=== PATIENT | male | born 1955 | race Caucasian/White ===

== ENCOUNTER 2017-04-15 06:46 | Inpatient (IN) | payer OTHER ==
--- NOTE | 2017-04-02 22:50 | HP ---
HISTORY AND PHYSICAL: DATE OF SURGERY: 04/15/17 DATE OF OFFICE VISIT: 04/02/17 SURGEON: Kathryn Joe MD * (DICTATED BY NABEEL HERRON) PROCEDURE: Left total hip arthroplasty. CHIEF COMPLAINT: Left hip pain. HISTORY OF PRESENT ILLNESS: Mr. Real is a 61-year-old gentleman with complaints of left hip pain secondary to advanced osteoarthritis. He has failed conservative management, has elected to proceed with a left total hip arthroplasty, which is scheduled for 04/15/[address] Joe. PAST MEDICAL HISTORY: 1. Hypothyroidism. 2. Hypertension. 3. Prior femur fracture bilaterally. 4. Melanoma. 5. GERD. 6. History of a bleeding ulcer. PAST SURGICAL HISTORY: 1. Bilateral ORIF of the femurs. 2. Jaw surgery. 3. Removal of bilateral femur rods. 4. Melanoma removal with orbital surgery. CURRENT MEDICATIONS: 1. Synthroid. 2. Omeprazole. 3. Quinapril. 4. Amlodipine. 5. Hydrochlorothiazide. 6. Turmeric. 7. [place]-3. 8. Osteo Bi-Flex. 9. Vitamin B12. ALLERGIES: No known drug allergies. FAMILY HISTORY: Colon cancer and hypertension. SOCIAL HISTORY: He is a 61-year-old gentleman, he lives with his . He is retired. He does not smoke or use drugs, uses occasional alcohol. REVIEW OF SYSTEMS: A complete 14-point review of systems is reviewed with the patient, is positive for hypothyroidism. PHYSICAL EXAMINATION GENERAL: He is well developed, well nourished, in no acute distress. VITAL SIGNS: He stands 5 feet 6 inches tall, weighs 197 pounds, his blood pressure is 136/82, heart rate is 97. HEENT: Normocephalic, atraumatic. NECK: Supple. No palpable lymph nodes. PULMONARY: Lungs are clear to auscultation bilaterally. CARDIO: Regular rate and rhythm. ABDOMEN: Soft, nontender, and nondistended. NEUROLOGIC: He is alert and oriented x3. Cranial nerves II through XII are intact. MUSCULOSKELETAL: Left lower extremity, the skin is intact. There are no open wounds or abrasions. He has decreased range of motion with internal and external rotation of the left hip. He walks with an antalgic type gait. His lower extremity muscle group strength is intact at 5/5 and he has 2+ dorsalis pedis pulses. ASSESSMENT AND PLAN: Mr. Real is a 61-year-old gentleman with complaints of left hip pain secondary to posttraumatic osteoarthritis. He has failed conservative management and has elected to proceed with a left total hip arthroplasty, which is scheduled for 04/15/17. Dr. Joe discussed the risks and benefits of the surgery at today's visit and all of his questions were answered. Coumadin, Percocet, and Colace were sent to his pharmacy for postoperative pain control and DVT prophylaxis. He will follow up with Dr. Joe in 2 weeks after the surgery. NABEEL HERRON [id number]/[facility] #: [id number] MTDD
[~2017-04-15 06:46] MED LIST: Buffered Lidocaine 0.9% SYRIN* 5 ML/SYR SYRINGE INTRADERM ONE; Famotidine IV* 10 MG/ML 2 ML (20 mg) IV ONE
[2017-04-15] MEDS ORDERED: ceFAZolin 2 GM PREMIX (*) 50 ML IVPB ONE (06:55)
[2017-04-15] MEDS ORDERED: Buffered Lidocaine 0.9% SYRIN* 5 ML/SYR SYRINGE ONE (06:55)
[2017-04-15] MEDS ORDERED: Famotidine IV* 10 MG/ML 2 ML (20 mg) ONE (06:55)
[2017-04-15] MEDS ORDERED: KETAMINE HCL* 50 MG/ML 10 ML VIAL ONE (07:51)
[2017-04-15] MEDS ORDERED: Midazolam* 1 MG/ML 5 ML VIAL (5 MG) ONE (07:51)
[2017-04-15] MEDS ORDERED: Morphine PF AMP (0.5MG/ML)* 5 MG/10 ML AMP ONE (07:51)
[2017-04-15] MEDS ORDERED: fentaNYL* 50 MCG/ML 2 ML VIAL (100 MCG VIAL) ONE (07:51)
[2017-04-15] MEDS ORDERED: Ketorolac INJ* 30 MG/ML 1 ML VIAL ONE (08:39)
[2017-04-15] MEDS ORDERED: Dexamethasone IV* 4 MG/ML 1 ML (4 MG) ONE (08:39)
[2017-04-15] MEDS ORDERED: Phenylephrine IV* 40 MCG/ML 10 ML SYRINGE ONE (08:39)
[2017-04-15] MEDS ORDERED: Propofol* 10 MG/ML 20 ML BTL IV PUSH ONE (08:39)
[2017-04-15] MEDS ORDERED: Ondansetron INJ* 2 MG/ML VIAL ONE (08:39)
[2017-04-15] MEDS ORDERED: Lidocaine 2% PF * 5 ML VIAL ONE (08:39)
[2017-04-15] MEDS ORDERED: EPHEDrine (Pressors)* 50 MG/ML VIAL ONE (08:48)
[2017-04-15] MEDS ORDERED: Nalbuphine* 20 MG/ML 1 ML VIAL IV PRN (09:34)
[2017-04-15] MEDS ORDERED: Naloxone* 0.4 MG/ML 1 ML VIAL IV PRN (09:34)
[2017-04-15] MEDS ORDERED: Ondansetron INJ* 2 MG/ML VIAL IV PRN (09:34)
[2017-04-15] MEDS ORDERED: oxyCODONE/Acetamin 5/325 MG* TAB PO PRN (09:39)
[2017-04-15] MEDS ORDERED: DiMENhydriNATE IV* 50 MG/ML VIAL IV PUSH PRN (09:39)
[2017-04-15] MEDS ORDERED: HYDROmorphone INJ* 1 MG/ML CARPUJECT SYRINGE IV PRN (09:39)
[2017-04-15] MEDS ORDERED: Gabapentin CAP(*) 300 MG PO ONE (09:41)
[2017-04-15] MEDS ORDERED: diPHENhydraMINE IV* 50 MG/ML 1 ml VIAL (BENADRYL) IV PRN (09:44)
[2017-04-15] MEDS ORDERED: Acetaminophen TAB* 325 MG PO PRN (09:44)
[2017-04-15] MEDS ORDERED: Bisacodyl SUPP* 10 MG SUPP PR PRN (09:44)
[2017-04-15] MEDS ORDERED: Polyethylene Glycol 3350* 17 GM PACKET PO PRN (09:44)
[2017-04-15] MEDS ORDERED: Magnesium Hydroxide LIQ* 30 ML UDC PO PRN (09:44)
[2017-04-15] MEDS ORDERED: ceFAZolin 1 GM VIAL(*) 1 GM in NS 0.9% 50 ML* 50 ML IVPB SCH (10:00)
--- NOTE | 2017-04-15 11:18 | RAD ---
Indication: Left hip replacement. 2 views of left hip demonstrates bipolar left hip arthroplasty in satisfactory position. No loosening is noted. IMPRESSION: Left hip bipolar arthroplasty in satisfactory position.
--- NOTE | 2017-04-15 12:04 | RAD ---
Indication: Postop LEFT total hip replacement. Comparison: January 18, 2017 Technique: Low AP pelvis and proximal femurs and AP and crosstable lateral views LEFT hip Report: LEFT total hip prosthesis in place with normal alignment. No periprosthetic fracture evident. Overlying soft tissue edema and subcutaneous emphysema. Partially visualized bilateral mid to distal diaphyseal femur fractures. IMPRESSION: Unremarkable immediate postop appearance of the LEFT total hip prosthesis.
[2017-04-15] MEDS: oxyCODONE/Acetamin 5/325 MG* TAB PO PRN ×3 (14:38→22:45)
[2017-04-15] MEDS: ceFAZolin 1 GM in Dextrose (*) 1 GM/50 ML BAG IVPB SCH (15:55)
[2017-04-15] MEDS: Ibuprofen TAB* 600 MG PO SCH ×2 (15:55→22:01)
[2017-04-15] MEDS ORDERED: Warfarin TAB(*) 6 MG PO ONE (17:00)
--- NOTE | 2017-04-15 22:00 | CONS ---
CC: Dr. Estrada; Dr. Joe * CONSULTATION REPORT: DATE OF CONSULT: 04/15/17 PRIMARY CARE PROVIDER: Dr. Estrada. REQUESTING PHYSICIAN FOR CONSULT: Dr. Joe. ATTENDING PHYSICIAN WHILE IN THE HOSPITAL: Dr. Shad Cho (report dictated by Martinez Hathaway NP). REASON FOR MEDICAL CONSULTATION: Evaluation and medical management of comorbid medical conditions. HISTORY OF PRESENT ILLNESS: Mr. Real is a 61-year-old man patient that for sometime has been dealing with left hip pain affecting his activities of daily living. He failed conservative therapy. He was evaluated by Dr. Joe. It was felt that he would benefit from a total hip replacement, which he underwent today. He does carry a history of hypothyroidism, hypertension, melanoma. He has a history of bilateral femur fractures with rodding and maximilian removal. He has a history of GERD and a history of GI bleed. He was evaluated in the postoperative setting. He says he is feeling well. Denies any chest pain, denies having abdominal discomfort. Says he actually feels hungry. He says he has a little bit of pain in his left hip. It is probably 3/10. He denies having any numbness or tingling in the lower extremity. Denies having any shortness of breath or chest pain and he says he does not feel lightheaded. Because of his medical complexity, we were asked to evaluate in consult. PAST MEDICAL HISTORY: Significant for: 1. Hypothyroidism. 2. Hypertension. 3. Melanoma. 4. Femur fracture. 5. GERD. 6. History of GI bleed. PAST SURGICAL HISTORY: 1. The patient has had an ORIF of bilaterally lower femurs. 2. He has had jaw surgery. 3. He has had a melanoma excision. 4. Left total hip arthroplasty done today and he has had removal of his femur rods. HOME MEDICATIONS: According to the list that was provided include: 1. Quinapril 40 mg daily. 2. Prilosec 20 mg daily. 3. [place]-3 fatty acids 1200 mg p.o. daily. 4. Turmeric 500 mg p.o. daily. 5. Osteo Bi-Flex 1 tablet p.o. daily. 6. Synthroid 88 mcg daily. 7. Ibuprofen 600 mg p.o. daily. 8. Hydrochlorothiazide 25 mg daily. 9. Vitamin B12 500 mcg daily. 10. Norvasc 5 mg daily. 11. Tylenol 3 tablets p.o. in the morning. ALLERGIES TO MEDICATIONS: Include MORPHINE. FAMILY HISTORY: His mother had a history of colon cancer. Father had a history of hypertension. SOCIAL HISTORY: He does not smoke, does not drink. Surrogate decision maker is his . REVIEW OF SYSTEMS: There is no documented fever. He denied having any significant weight change. There was no double vision. He denies having any ear discharge. There was no rhinorrhea. No sore throat. No thyroid enlargement. Denies having any chest pain. There is no orthopnea. There is no nocturnal dyspnea. He denied having any abdominal pain. There was no nausea , no vomiting, no dysuria, no frequency, no seizure, no loss of consciousness, no pruritus, and no skin ulceration. Review of 14 systems completed, all others negative. PHYSICAL EXAMINATION: Vital Signs: Blood pressure 122/88, pulse 74, respirations 16, O2 sat 97%, and his temperature was 98.2. General: At this time, Mr. Real is a 61-year-old male patient, appears to be well nourished, well developed. He is sitting in the hospital bed, does not appear to be in any acute distress.. HEENT: Head atraumatic. Eyes, sclerae anicteric. Neck supple. Throat: Oral mucosa appears to be moist. No oropharyngeal erythema. Heart: Sounds S1, S2. Regular rate and rhythm. No murmurs, rubs, or gallops. Lungs: Clear to auscultation. No wheezes, rales, or rhonchi. Abdomen: Soft , flat, nontender. Bowel sounds hypoactive. Extremities: Pulses 2+ throughout. He is unable to move the lower extremities as he is in a hip abductor pillow. He had distal CSM checks were intact. Neurologic: The patient is awake, alert, oriented x3. Tongue midline. Director Of Online Merchandising were equal. No gross focal deficits. Skin: Grossly intact with the exception he has an incision to the left hip, which is covered with an ABD. DIAGNOSTIC STUDIES/LAB DATA: His labs preop, sodium 133, potassium 4.4, chloride of 93, bicarb 24, glucose 87. WBC 4.4, RBC 3.92, hemoglobin 13.6, hematocrit 37, platelet count 355. INR 0.76. UA negative. BUN 7, creatinine 0.70. He did have a preop EKG, which showed a normal sinus rhythm, rate of 85. No ST elevations or T-wave inversions. X-ray showed no impression for acute intrathoracic disease. Old medical records reviewed. ASSESSMENT AND PLAN: Mr Real is a 61-year-old male patient coming in to Dr. Joe's services today for an elective left total hip. We were asked to evaluate in consult. Recommendations at this point are: 1. Status post left total hip. We will defer the management to Dr. Joe and her team. 2. Hypothyroidism. Continue with Synthroid. 3. Hypertension. We will continue meds with the exception of hydrochlorothiazide and we will continue to follow. Should his pressures tolerate, we will start the hydrochlorothiazide. 4. Melanoma. Follow with primary. 5. Gastroesophageal reflux disease. Continue PPI therapy. 6. History of GI bleed, not an active issue currently. We will follow. 7. DVT prophylaxis. Defer to the primary team. 8. Code status. Full code. 9. Fluids, electrolytes, and nutrition. I would recommend a heart healthy diet. TIME SPENT: Time spent on the consult was 60 minutes, greater than half that time was spent [id number] with the patient obtaining my history and physical, the other half the time was spent going over the plan of care with the patient and implementing the plan of care. I did discuss the plan of care with my attending, Dr. Cho, he is in agreement. MARTINEZ HATHAWAY NP [id number]/[facility] #: [id number] NEVA
[2017-04-15] MEDS: Docusate CAP* 100 MG PO SCH (22:01)
[2017-04-16] MEDS ORDERED: HYDROmorphone TAB* 2 MG PO PRN (00:06)
[2017-04-16] MEDS ORDERED: oxyCODONE/Acetamin 5/325 MG* TAB PO PRN (00:06)
[2017-04-16] MEDS: ceFAZolin 1 GM in Dextrose (*) 1 GM/50 ML BAG IVPB SCH ×2 (00:08→07:53)
[2017-04-16] MEDS ORDERED: Ondansetron INJ* 2 MG/ML VIAL IV PRN (01:35)
[2017-04-16] MEDS ORDERED: Ondansetron TAB* 4 MG PO PRN (01:35)
--- NOTE | 2017-04-16 01:36 | OP ---
DATE OF OPERATION: 04/15/17 - ROOM #348 DATE OF : 53 ATTENDING SURGEON: Kathryn Joe MD SLAG EXPANDER: NABEEL Hernandez. Ms. Garcia did help throughout the procedure with preparation of the leg, wound retraction, manipulation of the hip, and wound closure. ANESTHESIOLOGIST: Dr. Lehman. ANESTHESIA TYPE: Spinal. PRE-OP DIAGNOSIS: Severe posttraumatic osteoarthritis of the left hip joint. POST-OP DIAGNOSIS: Severe posttraumatic osteoarthritis of the left hip joint. OPERATIVE PROCEDURE: Left total hip arthroplasty. ESTIMATED BLOOD LOSS: 300 mL. COMPLICATIONS: None. SPECIMENS: Femoral head and multiple acetabular bone reaming sent to Pathology. HARDWARE USED: Uncemented Sadi total hip hardware. For the cup, a Titanium cluster hole shell 54E, 160-mm and 120-mm cancellous bone screw were used. An MDM cementless liner 42E. For the stem, an Accolade TMZF, size 3.5, 127-degree neck with a head 28-4, Biolox delta ceramic V40 femoral head with a 28/48/42E MDM X3 insert. BRIEF HISTORY/INDICATIONS: Mr. Real is a 61-year-old gentleman who had a fracture of his left femur treated with femoral nail many years ago, over 20 years ago. The nail was subsequently removed. The patient denied any problems or any complications or infection related to the femoral nailing or fracture. Over time, left hip pain, which was [id number] on radiographs. This was severe end-stage posttraumatic arthritis of the left hip joint. He failed conservative treatment with antiinflammatories, pain medications, and physical therapy. Due to continued pain and decreased quality of life, he elected to undergo left total hip arthroplasty. Informed consent was obtained from the patient. He understood the risks of the procedure included but were not limited to bleeding, infection, damage to nearby structures, intraoperative fracture, nerve palsy, hardware failure or loosening, dislocation, leg length discrepancy, stroke, heart attack, blood clot and . He wished to proceed. INTRAOPERATIVE FINDINGS: Intraoperatively, the patient was noted to have severe deformation of the femoral head and acetabulum. Femoral head was misshaping with significant loss of bone. Acetabulum was also deformed with extreme subchondral sclerosis and complete loss of cartilage. DESCRIPTION OF PROCEDURE: Mr. Real was identified in the preanesthesia unit. His left lower extremity was marked as the correct operative site. Informed consent was signed and placed in the chart. The patient was taken to the operating room and placed under spinal anesthesia. A Thorne catheter was placed. The patient was placed in the right lateral decubitus position on the pegboard. The left lower extremity was prepped and draped in the usual sterile fashion. Preop time-out was made to correctly identify the patient's side and site. Appropriate perioperative antibiotics were given within 1 hour of incision. A 14-cm posterior hip incision was made with a 10 blade and carried down to the lateral fascia layer. Lateral fascia layer was incised in line with skin incision. A Charnley retractor was placed. The piriformis and conjoint tendons were identified on the posterolateral femur. The electrocautery was used to elevate these and they were tagged with #5 Ethibond. Next, the electrocautery was used to make a standard posterolateral capsular flap. This was also tagged with #5 Ethibond. The hip was carefully dislocated. Lesser troch to the center of the femoral head measured 55 mm. It was noted the femoral head was deformed with abnormal shape. Oscillating saw was used to make the appropriate femoral neck cut. The femoral head was sent to Pathology. The femur was carefully retracted anteriorly. After appropriate placement of retractors, the acetabulum was visualized. Long-handled knife was used to sharply remove any remaining labrum from the acetabular rim. The acetabulum was sequentially reamed up to a size 53. There is significant subchondral sclerosis noted. There was minimal bone left medially. A bleeding subchondral bone bed was obtained. A 53 trial had a good fit. The Tritanium 54E cluster hole shell was chosen. This was placed in the acetabulum without difficulty. There was excellent stability and appropriate anteversion and abduction angle. A single 20 mm screw and a single 60 mm screw were placed in the superior posterior quadrant for extra stability. An MDM cementless liner 42E was chosen. This was impacted into the acetabulum without difficulty. Stability of the liner was checked and rechecked and noted to be stable. Inferior osteophyte was carefully removed from around the acetabular shell. Attention was next turned to preparation of the proximal femur. Canal finder was used to enter the proximal femur. Box cut osteotome was used to remove bone laterally. The femur was sequentially broached up to a size 3.5. A 3.5 broach had good fit and stability. A 127 degree neck trial and a 28, -4 head trial were chosen with the appropriate MDM insert. The hip was taken through range of motion and noted to be stable in all positions. Lesser troch to center of the femoral head measured 54 mm. There was appropriate soft tissue tension and leg lengths. All trials were carefully removed. Final implant chosen was an Accolade TMZF size 3.5 with a 127-degree neck. This was impacted into the femoral canal without difficulty. There was good stability and anteversion. Final head chosen was a Biolox delta ceramic V40 femoral head, 28 -4 with a 28/48/43 [place] X3 MDM insert. This was impacted on to the femoral neck without difficulty. The hip was reduced and taken through a range of motion. The hip was stable in all positions. There was appropriate leg length and soft tissue tension. The hip was copiously irrigated with sterile saline. The previously tagged capsule and tendons were reapproximated to the posterolateral femur through 2 trochanteric drill holes. The hip was copiously irrigated with sterile saline. Lateral fascia layer was closed using intraoperative #1 Vicryls. The rest of the incision was closed in the layered fashion using 0 and 2-0 Vicryl's. Skin was closed using running 3-0 Monocryl suture and Dermabond. Sterile Adaptic, 4x4s, and paper tape were used to cover the incision. The patient's anesthesia was reversed without difficulty. He was taken to the PACU in stable condition. Intended weightbearing will be weightbearing as tolerated. Intended DVT prophylaxis will be Coumadin with Lovenox bridge. [id number]/[facility] #: [id number] NEVA
[2017-04-16] MEDS: Ibuprofen TAB* 600 MG PO SCH ×2 (03:43→09:55)
[2017-04-16] MEDS: Levothyroxine TAB* 88 MCG TAB PO SCH (05:42)
[2017-04-16] MEDS: oxyCODONE/Acetamin 5/325 MG* TAB PO PRN ×3 (07:51→20:45)
[2017-04-16] MEDS: Enoxaparin(*) 30 MG/0.3 ML SYR SUBCUT SCH (07:53)
[2017-04-16] MEDS: Omeprazole CAP* 20 MG PO SCH (07:53)
[2017-04-16] MEDS: Lisinopril TAB* 10 MG PO SCH (07:54)
[2017-04-16] MEDS: amLODIPine TAB* 5 MG PO SCH (07:54)
[2017-04-16] MEDS: Docusate CAP* 100 MG PO SCH ×2 (07:55→20:45)
[2017-04-16 07:56] LABS: Hematocrit 30 % (42-52); Hemoglobin 10.6 g/dl (14.0-18.0)
[2017-04-16 08:14] LABS: BUN/Creatinine Ratio 12.7 (8-20); Calcium 8.3 mg/dL (8.6-10.3); Potassium 3.3 mmol/L (3.5-5.0)
--- NOTE | 2017-04-16 08:37 | PN ---
Progress Note - Progress Note Date of Service: 04/16/17 SOAP: Subjective: 61 y/o male s/p R CONNOR 04/[address] Joe. Patient overall feeling well, multiple questions answered for patient and , concerned with numberous steps in and out of home. afebrile, VSS overnight Objective: - General- Well appearing, sitting comfortably in chair, NAD AO MSk - R LE= surgical dressing intact, no drainage noted, DF/ PF intact, PT 2+, minimal edema sensation grossly intact. neg homans b/l Vital Signs Temp 98.0 F 04/16/17 07:41 Pulse 71 04/16/17 07:41 Resp 18 04/16/17 07:51 BP 127/83 04/16/17 07:41 Pulse Ox 100 04/16/17 07:41 Intake & Output 04/15/17 04/16/17 04/16/17 18:59 06:59 18:59 Intake Total 4455 1280 Output Total 1650 1650 Balance 2805 -370 Weight 197 lb 9.6 oz Intake: IV Fluids 2800 1060 Cefazolin 55 LR 2800 1005 IVPB 55 Cefazolin 55 Oral 1600 220 Output: Thorne 1550 1650 Estimated Blood Loss 100 Other: # Bowel Movements 0 Assessment: 61 y/o male s/p R CONNOR 04/[address] Joe. Plan: - DVT prophylaxis- Coumadin, lovenox. coumadin 10mg tonight - Continue PT/ OT - Continue current pain regimen - Possible D/C to home tomorrow. Laboratory Results - last 24 hr 04/16/17 04/16/17 04/16/17 07:00 07:00 07:00 Hgb 10.6 L Hct 30 L INR (Anticoag Therapy) 0.74 L Sodium 126 L Potassium 3.3 L Chloride 89 L Carbon Dioxide 27 Anion Gap 10 BUN 8 Creatinine 0.63 L Est GFR ( Amer) 166.0 Est GFR (Non-Af Amer) 129.0 BUN/Creatinine Ratio 12.7 Glucose 106 H Calcium 8.3 L Active Medications Generic Name Dose Route Start Last Admin Trade Name Freq PRN Reason Stop Dose Admin Acetaminophen 650 mg 04/15/17 09:44 Tylenol Tab* PO Q4H PRN PAIN OR TEMPERATURE Amlodipine Besylate 5 mg 04/16/17 09:00 04/16/17 07:54 Norvasc Tab* PO 5 mg DAILY JEROME Administration Bisacodyl 10 mg 04/15/17 09:44 Dulcolax Supp* CA DAILY PRN constipation Diphenhydramine HCl 12.5 mg 04/15/17 09:44 Benadryl Iv* IV Q6H PRN PRURITIS Docusate Sodium 100 mg 04/15/17 21:00 04/16/17 07:55 Colace Cap* PO 100 mg BID JEROME Administration Enoxaparin Sodium 30 mg 04/16/17 08:00 04/16/17 07:53 Lovenox(*) SUBCUT 30 mg Q24H JEROME Administration Hydromorphone HCl 2 mg 04/16/17 00:06 Dilaudid Tab* PO Q4H PRN PAIN Lactated Ringer's 1,000 mls @ 100 mls/hr 04/15/17 10:00 04/15/17 22:00 Lactated Ringers 1000 Ml Bag* IV 100 mls/hr PER RATE JEROME Administration Ibuprofen 600 mg 04/15/17 16:00 04/16/17 03:43 Motrin Tab* PO 04/16/17 10:00 600 mg Q6H JEROME Administration Lactulose 30 ml 04/15/17 09:44 Lactulose* PO Q6H PRN constipation Levothyroxine Sodium 88 mcg 04/16/17 06:00 04/16/17 05:42 Synthroid Tab* PO 88 mcg DAILY@0600 [facility] Administration Lisinopril 40 mg 04/16/17 09:00 04/16/17 07:54 Prinivil Tab* PO 40 mg DAILY JEROME Administration Magnesium Hydroxide 30 ml 04/15/17 09:44 Milk Of Magnesia Liq* PO Q6H PRN constipation Omeprazole 20 mg 04/16/17 07:30 04/16/17 07:53 Prilosec Cap* PO 20 mg DAILY@0730 JEROME Administration Ondansetron HCl 4 mg 04/16/17 01:35 Zofran Inj* IV Q6H PRN nausea Ondansetron HCl 4 mg 04/16/17 01:35 Zofran Tab* PO Q6H PRN NAUSEA Oxycodone HCl 10 mg 04/16/17 00:06 Roxycodone Tab* PO Q4H PRN SEVERE PAIN Oxycodone/Acetaminophen 1 tab 04/16/17 00:06 04/16/17 03:41 Percocet 5/325 Tab* PO 1 tab Q3H PRN Administration PAIN - MODERATE Oxycodone/Acetaminophen 2 tab 04/16/17 00:06 04/16/17 07:51 Percocet 5/325 Tab* PO 2 tab Q3H PRN Administration PAIN - MODERATE Polyethylene Glycol/Electrolytes 17 gm 04/15/17 09:44 Miralax* PO DAILY PRN Constipation Warfarin Sodium 10 mg 04/16/17 17:00 Coumadin Tab(*) PO 04/16/17 17:01 ONCE@1700 ONE Protocol
[2017-04-16] MEDS ORDERED: Hydrochlorothiazide TAB* 25 MG PO SCH (09:00)
[2017-04-16] MEDS: oxyCODONE TAB* 5 MG TAB PO PRN (11:46)
--- NOTE | 2017-04-16 12:54 | PN ---
Subjective Date of Service: 04/16/17 Interval History: Hospitalist Progress Note POD # 1 for Elective Total Left Hip after conservative treatment failed States he has had good pain control over night. Denies Nausea, vomiting, shortness of breath, chest pain or diaphoresis. On arrival to see patient he was currently getting out of bed with physical therapy. Family History: Unchanged from Admission Social History: Unchanged from Admission Past Medical History: Unchanged from Admission Objective Active Medications: Acetaminophen (Tylenol Tab*) 650 mg PO Q4H PRN Amlodipine Besylate (Norvasc Tab*) 5 mg PO DAILY JEROME Bisacodyl (Dulcolax Supp*) [address] DAILY PRN Diphenhydramine HCl (Benadryl Iv*) 12.5 mg IV Q6H PRN Docusate Sodium (Colace Cap*) 100 mg PO BID JEROME Enoxaparin Sodium (Lovenox(*)) 30 mg SUBCUT Q24H JEROME Hydromorphone HCl (Dilaudid Tab*) 2 mg PO Q4H PRN Lactulose (Lactulose*) 30 ml PO Q6H PRN Levothyroxine Sodium (Synthroid Tab*) 88 mcg PO DAILY@0600 JEROME Lisinopril (Prinivil Tab*) 40 mg PO DAILY JEROME Magnesium Hydroxide (Milk Of Magnesia Liq*) 30 ml PO Q6H PRN Omeprazole (Prilosec Cap*) 20 mg PO DAILY@0730 JEROME Ondansetron HCl (Zofran Inj*) 4 mg IV Q6H PRN Oxycodone HCl (Roxycodone Tab*) 10 mg PO Q4H PRN Oxycodone/Acetaminophen (Percocet 5/325 Tab*) 1 tab PO Q3H PRN Oxycodone/Acetaminophen (Percocet 5/325 Tab*) 2 tab PO Q3H PRN Polyethylene Glycol/Electrolytes (Miralax*) 17 gm PO DAILY PRN Warfarin Sodium (Coumadin Tab(*)) 8 mg PO ONCE@1700 ONE Vital Signs: Temp Pulse Resp BP Pulse Ox 97.9 F 89 18 140/72 100 04/16/17 11:44 04/16/17 11:44 04/16/17 11:46 04/16/17 11:44 04/16/17 11:44 Oxygen Devices in Use Now: None Appearance: Well developed 61 year old male in good spirits. Eyes: No Scleral Icterus, PERRLA Ears/Nose/Mouth/Throat: NL Teeth, Lips, Gums, Clear Oropharnyx, Mucous Membranes Moist Neck: NL Appearance and Movements; NL JVP, Trachea Midline, No Thyroid Enlargement, Masses Respiratory: Symmetrical Chest Expansion and Respiratory Effort, Clear to Auscultation Cardiovascular: NL Sounds; No Murmurs; No JVD, No Edema Abdominal: NL Sounds; No Tenderness; No Distention, No Hepatosplenomegaly Lymphatic: No Cervical Adenopathy Extremities: No Edema, No Clubbing, Cyanosis Skin: No Rash or Ulcers, - - Dressing dry and intact to left hip, no drainage noted Neurological: Alert and Oriented x 3 Lines/Tubes/Other Access: Clean, Dry and Intact Peripheral IV - right hand Result Diagrams: 04/16/17 07:00 04/16/17 07:00 Diagnostic Imaging: Indication: Postop LEFT total hip replacement. Comparison: January 18, 2017 Technique: Low AP pelvis and proximal femurs and AP and crosstable lateral views LEFT hip Report: LEFT total hip prosthesis in place with normal alignment. No periprosthetic fracture evident. Overlying soft tissue edema and subcutaneous emphysema. Partially visualized bilateral mid to distal diaphyseal femur fractures. IMPRESSION: Unremarkable immediate postop appearance of the LEFT total hip prosthesis. _ Assess/Plan/Problems-Billing Assessment: Asked to consult on Mr. Real who carries a history of hypothyroidism, Hypertension, melanoma, GERD, GI Bleed and Bilateral femur fractures with subsequent maximilian removal. Admitted for a total left hip after conservative treatment failed. Denies chest pain, shortness of breath or n/v. Is pleasant and upbeat regarding his physical therapy and rehab. - Patient Problems (1) Status post total hip replacement, left Current Visit: Yes Comment: Management per Orthopedics (2) HTN (hypertension) Current Visit: No Comment: Continue Norvasc, Lisinopril (3) Hypothyroid Current Visit: Yes Comment: Continue Synthroid (4) Melanoma Current Visit: Yes Comment: Follwed by Primary (5) Chronic GERD Current Visit: Yes Comment: Continue Prilosec (6) Full code status Current Visit: Yes Comment: is Proxy Status and Disposition: Inpatient~ Disposition per Orthopedics
[2017-04-16] MEDS ORDERED: Warfarin TAB(*) 4 MG PO ONE (17:00)
[2017-04-16] MEDS ORDERED: Warfarin TAB(*) 10 MG PO ONE (17:00)
[2017-04-17] MEDS: oxyCODONE/Acetamin 5/325 MG* TAB PO PRN ×4 (00:16→14:14)
[2017-04-17] MEDS: Levothyroxine TAB* 88 MCG TAB PO SCH (06:32)
[2017-04-17] MEDS: Lisinopril TAB* 10 MG PO SCH (07:58)
[2017-04-17] MEDS: Docusate CAP* 100 MG PO SCH (07:58)
[2017-04-17] MEDS: amLODIPine TAB* 5 MG PO SCH (07:58)
[2017-04-17] MEDS: Omeprazole CAP* 20 MG PO SCH (07:58)
[2017-04-17] MEDS: Enoxaparin(*) 30 MG/0.3 ML SYR SUBCUT SCH (07:59)
[2017-04-17 09:10] LABS: Hematocrit 29 % (42-52); Hemoglobin 10.3 g/dl (14.0-18.0); Mean Platelet Volume 7 um3 (7.4-10.4)
[2017-04-17] MEDS ORDERED: Potassium Chlor TAB* 20 MEQ TAB.ER PO SCH (10:00)
--- NOTE | 2017-04-17 10:04 | PN ---
Progress Note - Progress Note Date of Service: 04/17/17 SOAP: Subjective: Pt. is alert, pain controlled, wants to go home today. Objective: LLE - dressing changed, inc c/d/i. distally min edema, nvi. Vital Signs: Temp Pulse Resp BP Pulse Ox 98.4 F 81 18 138/80 100 04/17/17 07:40 04/17/17 07:40 04/17/17 07:58 04/17/17 07:40 04/17/17 07:40 Laboratory Results - last 24 hr 04/17/17 04/17/17 08:55 08:55 Hgb 10.3 L Hct 29 L Plt Count 242 MPV 7 L INR (Anticoag Therapy) 0.83 L Assessment: 61 yo M POD 2 s/p LTHA Plan: wbat with post hip precautions cmp ordered to recheck hypokalemia, potassium po ordered lovenox today plan d/c to home today with ecasa bid 20 meq kcl bid to go home x 48 hours
[2017-04-17 10:48] LABS: Albumin 3.2 g/dL (3.2-5.2); BUN/Creatinine Ratio 10.4 (8-20); Calcium 8.4 mg/dL (8.6-10.3); EGFR African American 154.6 (>60); EGFR Non-African American 120.2 (>60); Globulin 2.8 g/dL (2-4); Potassium 3.3 mmol/L (3.5-5.0); Total Bilirubin 0.6 mg/dL (0.2-1.0)
[2017-04-17] MEDS: oxyCODONE TAB* 5 MG TAB PO PRN (12:13)
[2017-04-17 12:29] VITALS: BP 122/61
--- NOTE | 2017-04-17 12:59 | PN ---
Subjective Date of Service: 04/17/17 Interval History: . pt denies complaints denies CP/SOB/LH - cooperating with PT well - has many stairs at house, so concerned about that yet optimistic he is progressing well. . Family History: Unchanged from Admission Social History: Unchanged from Admission Past Medical History: Unchanged from Admission Objective Active Medications: . Acetaminophen (Tylenol Tab*) 650 mg PO Q4H PRN PRN Reason: PAIN OR TEMPERATURE Amlodipine Besylate (Norvasc Tab*) 5 mg PO DAILY [facility] Last Admin: 04/17/17 07:58 Dose: 5 mg Bisacodyl (Dulcolax Supp*) 10 mg [place] DAILY PRN PRN Reason: constipation Diphenhydramine HCl (Benadryl Iv*) 12.5 mg IV Q6H PRN PRN Reason: PRURITIS Docusate Sodium (Colace Cap*) 100 mg PO BID [facility] Last Admin: 04/17/17 07:58 Dose: 100 mg Enoxaparin Sodium (Lovenox(*)) 30 mg SUBCUT Q24H [facility] Last Admin: 04/17/17 07:59 Dose: 30 mg Hydromorphone HCl (Dilaudid Tab*) 2 mg PO Q4H PRN PRN Reason: PAIN Lactated Ringer's (Lactated Ringers 1000 Ml Bag*) 1,000 mls @ 100 mls/hr IV PER RATE [facility] Last Admin: 04/15/17 22:00 Dose: 100 mls/hr Lactulose (Lactulose*) 30 ml PO Q6H PRN PRN Reason: constipation Last Admin: 04/17/17 10:02 Dose: 30 ml Levothyroxine Sodium (Synthroid Tab*) 88 mcg PO DAILY@0600 [facility] Last Admin: 04/17/17 06:32 Dose: 88 mcg Lisinopril (Prinivil Tab*) 40 mg PO DAILY [facility] Last Admin: 04/17/17 07:58 Dose: 40 mg Magnesium Hydroxide (Milk Of Magnesia Liq*) 30 ml PO Q6H PRN PRN Reason: constipation Last Admin: 04/16/17 20:45 Dose: 30 ml Omeprazole (Prilosec Cap*) 20 mg PO DAILY@0730 [facility] Last Admin: 04/17/17 07:58 Dose: 20 mg Ondansetron HCl (Zofran Inj*) 4 mg IV Q6H PRN PRN Reason: nausea Ondansetron HCl (Zofran Tab*) 4 mg PO Q6H PRN PRN Reason: NAUSEA Oxycodone HCl (Roxycodone Tab*) 10 mg PO Q4H PRN PRN Reason: SEVERE PAIN Last Admin: 04/17/17 12:13 Dose: 10 mg Oxycodone/Acetaminophen (Percocet 5/325 Tab*) 1 tab PO Q3H PRN PRN Reason: PAIN - MODERATE Last Admin: 04/16/17 03:41 Dose: 1 tab Oxycodone/Acetaminophen (Percocet 5/325 Tab*) 2 tab PO Q3H PRN PRN Reason: PAIN - MODERATE Last Admin: 04/17/17 07:58 Dose: 2 tab Pharmacy Profile Note (Coumadin Daily Reminder*) 1 note FOLLOW UP 1700 [facility] Last Admin: 04/16/17 17:34 Dose: 1 note Polyethylene Glycol/Electrolytes (Miralax*) 17 gm PO DAILY PRN PRN Reason: Constipation Last Admin: 04/17/17 12:21 Dose: 17 gm Potassium Chloride (Klor Con Er Tab*) 20 meq PO BID [facility] Last Admin: 04/17/17 10:14 Dose: 20 meq . Vital Signs 04/17/17 04/17/17 04/17/17 07:40 07:58 09:58 Temperature 98.4 F Pulse Rate 81 Respiratory 15 18 18 Rate Blood Pressure 138/80 (mmHg) O2 Sat by Pulse 100 Oximetry 04/17/17 04/17/17 11:24 12:13 Temperature 98.3 F Pulse Rate 94 Respiratory 14 18 Rate Blood Pressure 122/61 (mmHg) O2 Sat by Pulse 100 Oximetry Oxygen Devices in Use Now: None Appearance: NAD - appears stated age Ears/Nose/Mouth/Throat: Clear Oropharnyx Neck: Trachea Midline Respiratory: Symmetrical Chest Expansion and Respiratory Effort Cardiovascular: NL Sounds; No Murmurs; No JVD Abdominal: NL Sounds; No Tenderness; No Distention Lymphatic: No Cervical Adenopathy Extremities: No Edema Skin: No Rash or Ulcers Lines/Tubes/Other Access: Clean, Dry and Intact Peripheral IV Nutrition: Taking PO's Result Diagrams: 04/17/17 08:55 04/17/17 10:20 Assess/Plan/Problems-Billing . Assessment: Asked to consult on Mr. Real who carries a history of Hypothyroidism, Hypertension, melanoma, GERD, GI Bleed and Bilateral femur fractures with subsequent maximilian removal. Admitted for a total left hip after conservative treatment failed. Denies chest pain, shortness of breath or n/v. Is pleasant and upbeat regarding his physical therapy and rehab. - Patient Problems (1) Status post total hip replacement, left Current Visit: Yes Status: Acute Code(s): Z96.642 - PRESENCE OF LEFT ARTIFICIAL HIP JOINT SNOMED Code(s): 226895206376 Comment: Pain well controlled Management per Orthopedics (2) History of total left hip arthroplasty Current Visit: Yes Status: Acute Code(s): Z96.642 - PRESENCE OF LEFT ARTIFICIAL HIP JOINT (3) Chronic GERD Current Visit: Yes Status: Acute Priority: High Code(s): K21.9 - GASTRO- ESOPHAGEAL REFLUX DISEASE WITHOUT ESOPHAGITIS Comment: Continue Prilosec (4) Hypothyroid Current Visit: Yes Status: Acute Code(s): E03.9 - HYPOTHYROIDISM, UNSPECIFIED SNOMED Code(s): 79884192 Comment: Continue Synthroid (5) Melanoma Current Visit: Yes Status: Acute Priority: High Code(s): C43.9 - MALIGNANT MELANOMA OF SKIN, UNSPECIFIED Comment: noted - outpatient mgmt. (6) Full code status Current Visit: Yes Status: Acute Code(s): Z78.9 - OTHER SPECIFIED HEALTH STATUS Comment: His is his Proxy decision maker Status and Disposition: Inpatient~ Disposition per Orthopedics
--- NOTE | 2017-04-17 17:22 | DS ---
Amended report to enter cosigning doctor. DISCHARGE SUMMARY: DATE OF ADMISSION: 04/15/17 DATE OF DISCHARGE: 04/17/17 ATTENDING PHYSICIAN: Dr. Kathryn Joe* (dictated by NABEEL Lugo). PRINCIPAL DIAGNOSIS: Left hip osteoarthritis. SECONDARY DIAGNOSIS: 1. Hypothyroidism. 2. Hypertension. 3. Prior femur fracture bilaterally. 4. Melanoma. 5. Gastroesophageal reflux disease. 6. History of a bleeding ulcer. PRINCIPAL PROCEDURE: Left total hip arthroplasty. REASON FOR HOSPITALIZATION: Mr. Real is a 61-year-old male with longstanding history of left hip pain secondary to advanced osteoarthritis. He failed conservative management. He elected to proceed with a left total hip arthroplasty, which was done 04/15/[address] Joe. HOSPITAL COURSE: Patient was admitted to the hospital on 04/15/17 and underwent left total hip arthroplasty without any complications. He was transferred to the recovery room and subsequently the surgical stay unit, in a stable condition. Vital signs have remained stable throughout hospital course, including remaining afebrile. Dressing was changed on postop day #2 and incision was clean and dry and intact. The patient has participated in physical therapy throughout the hospital course without any complications. The patient was on Lovenox and Coumadin for DVT prophylaxis. His INR was 0.83 and was not therapeutic on the day of discharge. His Coumadin was switched to aspirin 325 mg twice a day for DVT prophylaxis. Hemoglobin and hematocrit were checked throughout the hospital course and were stable. Hemoglobin was 10.3 and hematocrit 29 on the day of discharge. Again, the patient has had no complications throughout the hospital course and will be discharged to home on 04/17/17 in a stable condition. The patient was hyponatremic with sodium at 124 , and potassium was hypokalemic with potassium at 3.3, and potassium was replenished with potassium chloride tablets 20 mEq. DISCHARGE INSTRUCTIONS: He may resume regular diet, increase fluids and fiber to prevent constipation. Continue to use stool softeners. Call the office if no bowel movement within 48 hours. The patient will be discharged on potassium chloride tablets, 20 mEq by mouth twice a day for 2 days. Wound Care: Okay to shower. No bathing, swimming, submerging wound. Use a gentle soap, pat dry. Cover with gauze, Gorge wrap or tape. Call orthopedic office for increased drainage, redness, increased pain or fever. Go to the ER with shortness of breath or chest pain. Weightbear as tolerated. Continue hip precautions; do not cross legs or bend greater than 90 degrees or squat. Continue physical therapy and occupational therapy, exercises as shown. Visiting home nurse to do wound checks. Coumadin dosing, discontinue Coumadin. Take aspirin 325 mg twice a day for 4 weeks. Antibiotics required prior to any dental work. Followup with Dr. Joe within 10 to 14 days, call the orthopedic office to schedule appointment. NABEEL LUGO [id number]/CPS #: [id number] NEV[place]
== END 2017-04-17 14:30 | disposition home health service (06) | DRG 301 ==
LOC: AA 06:46 → SSU 11:49
PROVIDERS: ADMIT Orthopaedic Surgery Adult Reconstructive Orthopaedic Surgery; ATTEND Orthopaedic Surgery Adult Reconstructive Orthopaedic Surgery
PROC: 0SRB03A Replacement of Left Hip Joint with Ceramic Synthetic Substitute, Uncemented, Open Approach (ICD-10-PCS; principal; 2017-04-15 08:00)
DX: M16.52 Unilateral post-traumatic osteoarthritis, left hip (principal); E87.1 Hypo-osmolality and hyponatremia; I10 Essential (primary) hypertension; E03.9 Hypothyroidism, unspecified; K21.9 Gastro-esophageal reflux disease without esophagitis; E87.6 Hypokalemia; Z85.820 Personal history of malignant melanoma of skin; Z80.0 Family history of malignant neoplasm of digestive organs; Z82.49 Family history of ischemic heart disease and other diseases of the circulatory system; Z72.89 Other problems related to lifestyle; Z88.5 Allergy status to narcotic agent; Z87.891 Personal history of nicotine dependence
CPT/HCPCS: 36415; 80048; 80053; 85014; 85018; 85049; 85610; 88304; 88311; A9270-GY; C1713; C1776; J0690; J1100; J1650; J1885; J2250; J2405; J2704; J3010